=== PATIENT | female | born 1960 | race Caucasian/White ===

== ENCOUNTER 2019-01-30 15:26 | Emergency (ER) | payer BC, OTHER ==
[~2019-01-30] VITALS: Ht 170.2 cm; Wt 77.1 kg
[~2019-01-30 15:26] MED LIST: CELEXA20 MG PO; CLONAZEPAM 0.50.5 M1 PO; CYTOMEL 25 MCG25 MC1 PO; LAMICTAL100 MG PO; MEDROLDOSEPACK PO; NASONEX17 GM NASAL; NEURONTIN600 MG PO; PROMETHAZINE-C120 ML PO; PROVENTIL HFA6.7 G1 INH; SINGULAIR 10 MG10 M1 PO; ZARAH TABLET1 EACH PO; ZOLPIDEM TARTRA10 MG PO; ZPAK PO
[2019-01-30] MEDS ORDERED: ALDACTONE50 MG PO (15:59)
[2019-01-30] MEDS ORDERED: CYTOMEL 25 MCG25 MC1 PO (15:59)
[2019-01-30] MEDS ORDERED: NORCO 5-325 TA1 EAC1 PO (16:43)
[2019-01-30 17:47] VITALS: BP 120/71
== END 2019-01-30 17:48 | disposition home or self-care (01) ==
LOC: ER 15:26
DX: S22.32XA Fracture of one rib, left side, initial encounter for closed fracture (principal); W18.39XA Other fall on same level, initial encounter; Y92.89 Other specified places as the place of occurrence of the external cause; Y93.01 Activity, walking, marching and hiking; Y99.8 Other external cause status

== ENCOUNTER 2019-02-01 21:27 | Inpatient (IN) | payer BC ==
[~2019-02-01] VITALS: Ht 170.2 cm; Wt 81.6 kg
[~2019-02-01 21:27] MED LIST changes: +ALDACTONE50 MG PO; +NORCO 5-325 TA1 EAC1 PO
[2019-02-01 21:34] VITALS: BP 135/76
[2019-02-01 23:23] LABS: ABSOLUTE NEUTROPHILS 5.1 thou/uL (1.4-8.2); BASOPHILS 0.4 % (0.0-2.0); EOSINOPHILS 1.4 % (0.0-3.0); HEMATOCRIT 38.3 % (37.0-47.0); HEMOGLOBIN 12.7 gm/dL (12.0-15.0); LYMPHOCYTES 13.7 % (24.0-44.0); MCH 29.1 pg (26.0-34.0); MCHC 33.2 g/dL (28.0-37.0); MCV 87.5 fL (80.0-100.0); PLATELET COUNT 216 thou/uL (150-400); POLYS 74.5 % (36.0-66.0); RBC 4.38 mil/uL (4.20-5.00); RDW 12.5 % (10.5-14.5); WBC 6.8 thou/uL (4.0-11.0)
[2019-02-01 23:27] LABS: CREATININE 0.9 mg/dL (0.6-1.0); POTASSIUM 4.3 mmol/L (3.5-5.1)
[2019-02-01 23:33] LABS: ALBUMIN 3.5 g/dL (3.4-5.0); TOTAL BILIRUBIN 0.6 mg/dL (<0.1-1.0); TOTAL PROTEIN 6.7 g/dL (6.4-8.2)
[2019-02-02 00:52] VITALS: BP 107/56
[2019-02-02 01:40] VITALS: BP 106/59
[2019-02-02 01:45] LABS: URINE CLARITY CLEAR; URINE COLOR YELLOW
[2019-02-02 01:46] LABS: URINE BILIRUBIN NEGATIVE (Negative); URINE BLOOD NEGATIVE (Negative); URINE GLUCOSE-RANDOM* NEGATIVE (Negative); URINE KETONES NEGATIVE (Negative); URINE LEUKOCYTES-REFLEX NEGATIVE (Negative); URINE NITRITE-REFLEX NEGATIVE (Negative); URINE PROTEIN (DIPSTICK) NEGATIVE (Negative)
[2019-02-02 01:49] LABS: SSA (PROTEIN CONFIRMATORY) NEGATIVE (Negative)
[2019-02-02 01:51] VITALS: BP 192/60
--- NOTE | 2019-02-02 05:37 | NUR ---
PATIENT ARRIVED ON UNIT AT 0200 VIA CART ACCOMPANIED BY ED RAMA. AT ALERT AND ORIENTED X4. C/O PAIN IN RIBS OF 1.5 TO 2. WANTED IV PAIN MED. GAVE PO PAIN MED. UP AD [place]. STEADY ON FEET BUT TOLD TO ASK FOR HELP TO GO TO THE BATHROOM D/T THE PAIN MEDS. C/O DRY EYES, HOSPILTALIST WAS CALLED TO GET AN ORDER FOR ARTIFICIAL TEARS. OBTAINED AND GIVEN TO PATIENT. SLEPT MOST OF NIGHT AFTER ARRIVING. C/O ROOM TOO HOT AND TOO LOUD. TURN AIR UP AND GAVE EAR PLUGS.
[2019-02-02 07:35] VITALS: BP 106/44
[2019-02-02 16:15] VITALS: BP 113/60
[2019-02-02 20:30] VITALS: BP 109/71
--- NOTE | 2019-02-02 20:49 | NUR ---
Assumed patient care at 0715. Patient required much education per pain medications and management (she mentioned wanting Morphine). explained to her that he would order Oxycodone 5mg. Patient reqested and recieved this medication as often as she could get it. She rated her pain at level 6-8, responded with relief of 5-6. Patients vital signs have been stable. She is independent with all ADL's. POC followed. No nausea and/or vomiting during this shift.
[2019-02-03 04:52] VITALS: BP 104/58
--- NOTE | 2019-02-03 05:25 | NUR ---
A/O, cooperative with intermittent anxiety; patient complained of pain in left rib, asked for Morphine, TOLL GATE TENDER Ms. Ramos called and Morphine was not given. Patient agreed to take Oxycodone; refused ice bag offer, accepted pillow as splint during cough. Patient had no IV access, according to the day nurse, she had reported that to the doctor but could not remember the name of the doctor; patient refused to have an IV inserted, asked to wait until day time. Will pass it to the day nurse.
[2019-02-03 07:35] VITALS: BP 102/67
[2019-02-03] MEDS ORDERED: CYCLOBENZAPRINE5 MG PO (10:11)
[2019-02-03] MEDS ORDERED: LIDOPATCH1 EACH TRANSDERM (10:12)
[2019-02-03] MEDS ORDERED: SENNA-TIME S T1 EACH PO (10:12)
[2019-02-03] MEDS ORDERED: OXYCODONE HCL 55 MG PO (10:12)
[2019-02-03 12:04] VITALS: BP 102/67
--- NOTE | 2019-02-03 13:16 | NUR ---
PT DISCHARGING TODAY TO HOME WITH FAXED REFERRAL TO [facility] SPOKE WITH GUY IN INTAKE AND SHE RECEIVED REFERRAL AND CAN ACCEPT PT. FAXED DC ORDERS/SUMMARY AND RECEIVED CONFIRMATION AND GUY WILL NOTIFY PT TIME OF VISITS. THEY SHOULD START VISITS ON MONDAY 02/05.
[2019-02-03 13:42] VITALS: BP 102/67
--- NOTE | 2019-02-03 14:00 | EKG ---
[address] [address] ELECTROCARDIOGRAM REPORT Name: ANNABEL SOSA Room #: 419-P ADM IN M.R.#: [id number] Admission: 02/02/19 Attend Phys: Catalino Queen Discharge: Date of : 64 Report #: [id number] THIS REPORT FOR: //name// [facility] ED Test Date: 2019-02-01 Test Time: 23:23:16 Pat Name: ANNABEL SOSA Department: Room: 419 Gender: F Stamp Classifier: nicolasa : 1960 Requested By: Cheko rGace Order Number: [id number] MD: Dru Lara Measurements Intervals [place] Rate: 129 P: 75 MA: 162 QRS: 76 QRSD: 69 T: 31 QT: 286 QTc: 419 Interpretive Statements Sinus tachycardia Borderline repolarization abnormality No previous ECG available for comparison Electronically Signed On 02-03-2019 14:00:20 CDT by Dru Lara [email or web address] <ELECTRONICALLY SIGNED> By: Dru Lara MD 02/03/19 1400 [id number] [id number] MD UMA Gomez
--- NOTE | 2019-02-03 14:38 | HC ---
[facility] [place] [address] CONSULTATION Name: ANNABEL SOSA Katie Room #: 419-P ADM IN M.R.#: [id number] Admission: 02/02/19 Attend Phys: Catalino Queen Discharge: Date of : 64 Report #: [id number] THIS REPORT FOR: //name// CC: [facility] physician/PCP Catalino Queen DATE OF SERVICE: 02/02/2019 We were asked to see the patient by the hospitalists. HISTORY OF PRESENT ILLNESS: The patient is a 59-year-old who sustained left chest trauma in a fall approximately 3 days ago. The patient returned to the Emergency Department with what she described was intractable pain and has required IV morphine since being admitted. The patient states that she was walking her dog several days ago when she fell. Denies any other trauma including loss of consciousness. The patient is not using any blood thinners at home. Chest x-ray describes nondisplaced fractures of ribs 7, 8, [address] scan shows a 7th rib fracture, minimally displaced with a trivial left pleural effusion. PAST MEDICAL HISTORY: Hip replacements. MEDICATIONS: Lamotrigine, citalopram, Singulair, clonazepam, gabapentin, spironolactone, and liothyronine. The patient reports hypothyroidism and depression. ALLERGIES: None known. SOCIAL HISTORY: The patient states she is a nonsmoker and does admit to alcohol use. REVIEW OF SYSTEMS: CONSTITUTIONAL: Negative for fever or chills. EYES: Negative for visual change. HEENT: Negative for headache, rhinorrhea, or sore throat. RESPIRATORY: Negative for cough or shortness of breath. CARDIAC: Negative for chest pain or palpitations. GASTROINTESTINAL: Negative for nausea, vomiting except for the hydrocodone that was prescribed in the ER that caused nausea. GENITOURINARY: Negative for burning, frequency, or urgency. MUSCULOSKELETAL: As mentioned back and chest pain after a fall. SKIN: No rash or infection. NEUROLOGIC: No motor or sensory weakness. [address] [address] CONSULTATION Name: ANNABEL SOSA Room #: 419-P [facility] IN ..#: [id number] Admission: 02/02/19 Attend Phys: Catalino Queen Discharge: Date of : 64 Report #: [id number] PHYSICAL EXAMINATION: GENERAL: The patient is lying in bed, talkative. VITAL SIGNS: Blood pressure is 106/44, heart rate 89, temperature 36.7, respiratory rate 18, and pulse ox, O2 sat 93 on room air. HEENT: Normocephalic. Pupils small. No scleral icterus, no arcus. NECK: No mass, no bruit. CHEST: Clear to auscultation bilaterally. HEART: Rhythm regular. ABDOMEN: Soft. Does have tenderness over the left chest to palpation. EXTREMITIES: No clubbing, cyanosis or edema, 2+ dorsalis pedis pulses bilaterally. SKIN: No rash or infection. NEUROLOGIC: No obvious motor or sensory dysfunction. PSYCHIATRIC: Shows insight into problem and is oriented and appropriate. IMPRESSION: The patient has a minimally displaced rib fractures, but intractable pain. I have recommended that the patient have rib block or epidural, courtesy of the anesthesia. If this fails, then the patient could be considered for open reduction of fractures, but this would be a drastic measure for minimally displaced fracture without respiratory compromise. I am unavailable for surgery after today and if the patient and her other physicians feel that surgery is appropriate, then this may need to be done at a different facility. Thank you for the consult. <ELECTRONICALLY SIGNED> By: Roberto Carlos Ortiz MD 02/03/19 1438 [id number] Roberto Carlos Ortiz MD /nt
[2019-02-03 14:50] VITALS: BP 102/67
--- NOTE | 2019-02-03 14:55 | NUR ---
PT ADMITTED RELATED TO LEFT RIB FRACTURE, INTRACTABLE PAIN. CM REVIEWED CHART AND SPOKE WITH CARE TEAM. CM MET WITH PT AT BEDSIDE THIS DAY. PT IS A&O X4. CM ROLE INTRODUCED. 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 PT INDICATED SHE HAS A NEBULIZER BUT HADN'T BEEN USING IT TRANSPLANTER. PT INIDCATED SHE PLANS TO RETURN HOME ONCE MEDICALLY STABLE. PT INDICATED SHE WOULD BE RECEPTIVE TO HH IF NEEDED UPON DC. NO PREFERENCE INDICATED REFERRAL SENT TO [facility] FOR PT, AND NURSING. THEY CAN ACCEPT PT. NO OTHER CM INTERVENTION INDICATED. CASE CLOSED.
--- NOTE | 2019-02-03 15:46 | NUR ---
Assumed patient care at 0715. Patient noted to be irritable, continues to complain of pain. Patient given her Oxycodone as ordered for left sided rib pain with partial relief, Vital signs stable, LSCTA, BS x's 4, ABD soft et non-tender, skin is clean warm, dry et intact. POC followed . Patient discharged with Home Health at approximately 1500. Patient verbalized an understanding of al discharge instructions before signing paperwork. Patient left in wheelchair, was with her. Patient recieved the flu shot this am also.
[2019-02-03 16:15] VITALS: BP 137/57
== END 2019-02-03 17:40 | disposition home health service (06) | DRG 206 ==
LOC: ER 21:27 → 4E 02-02 00:38 → EROBS 02-02 00:38 → 4E 02-02 01:30 → ENTRNSPT 02-03 14:13 → EDTRNSPTSTS 02-03 15:36 → 4E 02-03 17:40
PROVIDERS: Emergency Medicine; ADMIT Hospitalist
DX: S22.32XA Fracture of one rib, left side, initial encounter for closed fracture (principal); J98.11 Atelectasis; F32.9 Major depressive disorder, single episode, unspecified; J45.909 Unspecified asthma, uncomplicated; F41.9 Anxiety disorder, unspecified; F17.210 Nicotine dependence, cigarettes, uncomplicated; Z96.649 Presence of unspecified artificial hip joint; W19.XXXA Unspecified fall, initial encounter; Z79.899 Other long term (current) drug therapy; Y93.89 Activity, other specified; Y92.098 Other place in other non-institutional residence as the place of occurrence of the external cause; Y99.8 Other external cause status; Z23 Encounter for immunization
CPT/HCPCS: 10084